=== PATIENT | female | born 1930 | race Caucasian/White ===

== ENCOUNTER 2016-10-05 22:09 | Inpatient (IN) | payer OTHER, MEDICARE ==
[~2016-10-05] VITALS: Ht 162.6 cm; Wt 72.0 kg
[~2016-10-05 22:09] MED LIST: CELECOXIB200 MG PO; Coumadin,Jantoven PO; FERROUS SULFAT325 MG PO; Feosol PO; HYDROCODON-ACE1 EAC7 PO; LOVASTATIN40 MG PO; PERCOCET 5/31 TABLET PO; SENNA-TIME S T1 EACH PO; Senokot S,Pericolace PO; TOPROL XL6.25 MG PO; Vicodin,Norco 5/325 PO; WARFARIN SODIUM1 MG PO; WARFARIN SODIUM2 MG PO; ZESTORETIC 20-1 EAC1 PO; celeBREX PO
[2016-10-05 22:36] LABS: HEMATOCRIT 35.6 % (36.0-46.0); MCH 28.9 PG (29.0-34.0); MCHC 32.3 G/DL (30.0-36.0); MCV 89.4 FL (83-99); MEAN PLAT.VOLUME 10.5 uM^3 (9.5-12.4); PLATELET COUNT 125 K/uL (156-360); RBC DIS.WIDTH-SD 45.1 % (39-53); RED BLOOD COUNT 3.98 M/uL (3.80-5.20); WHITE BLOOD COUNT 6.1 K/uL (4.1-10.2)
[2016-10-05 22:46] LABS: CHLORIDE 104 mEq/L (99-109); POTASSIUM 3.5 mEq/L (3.7-5.4); SODIUM 141 mEq/L (136-147)
[2016-10-05 22:48] LABS: GLUCOSE 104 mg/dL (70-99)
[2016-10-05 22:49] LABS: ANION GAP 11 MEQ/L (2-14)
[2016-10-05 22:51] LABS: GFR ESTIMATE (CALCULATED) > 59 mL/min/
[2016-10-05 22:52] LABS: UREA NITROGEN (BUN) 19 mg/dL (9-23)
[2016-10-05 23:10] LABS: TROP-I INTERPRETATION NEGATIVE; TROPONIN-I 0.02 ng/mL (0.0-0.30)
[2016-10-06 00:53] LABS: INTER. NORMALIZED RATIO 2.5; PROTHROMBIN TIME 26.3 (9.2-11.2); PTT 34.8 (25-32)
[2016-10-06] MEDS ORDERED: TOPROL XL25 MG PO (00:54)
[2016-10-06] MEDS ORDERED: WARFARIN SODIUM1 MG PO ×2 (00:55)
[2016-10-06 00:57] LABS: TOTAL BILIRUBIN 0.5 mg/dL (0.0-1.0)
[2016-10-06 00:58] LABS: ALKALINE PHOSPHATASE 81 IU/L (3-129)
[2016-10-06 01:01] LABS: DIRECT BILIRUBIN 0.3 mg/dL (0.0-0.3)
[2016-10-06 01:02] LABS: LIPASE 68 U/L (1.0-51.0)
[2016-10-06 05:17] VITALS: BP 128/64
[2016-10-06 05:19] LABS: TROP-I INTERPRETATION NEGATIVE; TROPONIN-I 0.03 ng/mL (0.0-0.30)
[2016-10-06 05:33] LABS: INTER. NORMALIZED RATIO 2.5; PROTHROMBIN TIME 26.4 (9.2-11.2)
[2016-10-06 05:38] LABS: HDL CHOLESTEROL 43 MG/DL (Desirable>=50); LDL CHOLESTEROL 63 mg/dL (Desirable<100); NON-HDL CHOLESTEROL 73 mg/dL (Desirable<160); TOTAL CHOLESTEROL 116 mg/dL (Desirable<200); TRIGLYCERIDES 51 MG/DL (Normal: <150)
[2016-10-06 06:05] LABS: ADD MIUA? YES; BILIRUBIN NEGATIVE; BLOOD MODERATE; COLOR YELLOW ((YELLOW)); GLUCOSE (STRIP) NEGATIVE; KETONES NEGATIVE; LEUKOCYTES SMALL; NITRITE NEGATIVE; PROTEIN (STRIP) NEGATIVE; SPECIFIC GRAVITY 1.006 (1.000-1.030); UROBILINOGEN 0.2 MG/DL (0.2-1.0)
[2016-10-06 06:09] LABS: BACTERIA NONE SEEN /HPF; EPITHELIAL CELLS 2+ /HPF; MUCUS NONE SEEN /LPF; RED BLOOD CELLS 0-5 /HPF (0-5); UCUL ADDED? NO
[2016-10-06 07:15] VITALS: BP 135/61
[2016-10-06 07:19] LABS: Estimated Average Glucose 123 mg/dL (70-123); HEMOGLOBIN A1c (GLYCOHEMOGLOB) 5.9 % HGB (Below 5.7)
[2016-10-06 11:33] VITALS: BP 138/87
[2016-10-06 12:34] LABS: HEMATOCRIT 34.9 % (36.0-46.0); MCH 29.1 PG (29.0-34.0); MCHC 32.7 G/DL (30.0-36.0); MEAN PLAT.VOLUME 10.2 uM^3 (9.5-12.4); PLATELET COUNT 116 K/uL (156-360); RBC DIS.WIDTH-CV 14.2 % (11.8-14.6); RBC DIS.WIDTH-SD 46.1 % (39-53); RED BLOOD COUNT 3.92 M/uL (3.80-5.20); WHITE BLOOD COUNT 5.3 K/uL (4.1-10.2)
[2016-10-06 12:50] LABS: CHLORIDE 105 mEq/L (99-109); POTASSIUM 3.9 mEq/L (3.7-5.4); SODIUM 142 mEq/L (136-147)
[2016-10-06 12:51] LABS: GLUCOSE 84 mg/dL (70-99)
[2016-10-06 12:53] LABS: ANION GAP 11 MEQ/L (2-14)
[2016-10-06 12:55] LABS: GFR ESTIMATE (CALCULATED) > 59 mL/min/; TROP-I INTERPRETATION NEGATIVE; TROPONIN-I 0.02 ng/mL (0.0-0.30)
[2016-10-06 12:56] LABS: UREA NITROGEN (BUN) 16 mg/dL (9-23)
[2016-10-06 15:54] VITALS: BP 100/58
[2016-10-06 20:27] VITALS: BP 135/63
[2016-10-07] VITALS: BP 126/62
[2016-10-07 05:14] VITALS: BP 120/61
[2016-10-07 07:28] LABS: INTER. NORMALIZED RATIO 2.8; PROTHROMBIN TIME 29.3 (9.2-11.2)
[2016-10-07 08:00] VITALS: BP 185/74
[2016-10-07 12:15] VITALS: BP 162/77
== END 2016-10-07 15:16 | disposition home or self-care (01) | DRG 310 ==
LOC: EME 22:09 → EDOF 10-06 01:54 → 5WEST 10-06 03:26
PROVIDERS: Emergency Medicine; Family Medicine; Hospitalist; Physician Assistant
DX: I49.5 Sick sinus syndrome (principal); E11.9 Type 2 diabetes mellitus without complications; E78.5 Hyperlipidemia, unspecified; M19.90 Unspecified osteoarthritis, unspecified site; Z96.643 Presence of artificial hip joint, bilateral; Z96.653 Presence of artificial knee joint, bilateral; I48.2 Chronic atrial fibrillation; R55 Syncope and collapse; D64.9 Anemia, unspecified; I11.9 Hypertensive heart disease without heart failure; I27.2 Other secondary pulmonary hypertension; I07.1 Rheumatic tricuspid insufficiency
CPT/HCPCS: 70450; 70551; 71020; 80048; 80061; 80076; 81003; 82948; 83036; 83690; 84484; 85027; 85610; 85730; 93005; 93306; 93880; 99281; 99285

== ENCOUNTER 2016-10-10 10:01 | Inpatient (IN) | payer OTHER, MEDICARE ==
[~2016-10-10 10:01] MED LIST changes: +TOPROL XL25 MG PO
[2016-10-10] MEDS ORDERED: WARFARIN SODIUM1 MG PO (10:54)
[2016-10-10] MEDS ORDERED: COUMADIN1 MG PO (10:54)
[2016-10-10 13:40] LABS: PTT 23.9 (25-32)
[2016-10-10 14:13] LABS: INTER. NORMALIZED RATIO 1.5; PROTHROMBIN TIME 15.6 (9.2-11.2)
[2016-10-10 18:25] VITALS: BP 163/79
[2016-10-10 19:14] VITALS: BP 158/75
[2016-10-10 23:16] VITALS: BP 133/68
[2016-10-11 03:30] VITALS: BP 112/53
[2016-10-11 07:11] LABS: INTER. NORMALIZED RATIO 1.5; PROTHROMBIN TIME 15.3 (9.2-11.2)
[2016-10-11 08:14] VITALS: BP 160/71
[2016-10-11 11:25] VITALS: BP 163/77
[2016-10-11 14:46] VITALS: BP 159/74
[2016-10-11] MEDS ORDERED: METOPROLOL SUCC25 MG PO (18:31)
== END 2016-10-11 20:44 | disposition home or self-care (01) | DRG 243 ==
LOC: CATH 10:01 → 2SOUTH 13:34 → 4EAST 13:34
PROVIDERS: Thoracic Surgery (Cardiothoracic Vascular Surgery)
PROC: 02HK3JZ Insertion of Pacemaker Lead into Right Ventricle, Percutaneous Approach (ICD-10-PCS; principal; 2016-10-10)
PROC: 0JH636Z Insertion of Pacemaker, Dual Chamber into Chest Subcutaneous Tissue and Fascia, Percutaneous Approach (ICD-10-PCS; principal; 2016-10-10)
PROC: 02H63JZ Insertion of Pacemaker Lead into Right Atrium, Percutaneous Approach (ICD-10-PCS; principal; 2016-10-10)
DX: I49.5 Sick sinus syndrome (principal); I48.1 Persistent atrial fibrillation; I10 Essential (primary) hypertension; E78.5 Hyperlipidemia, unspecified
CPT/HCPCS: 71010; 85610; 85730; 93005; C1785; C1892; C1894; C1898; J0690; J1200; J2250; J3010; J7040; S0020